=== PATIENT | male | born 2000 | race Caucasian/White ===

== ENCOUNTER 2022-08-14 09:47 | Emergency (ER) | payer OTHER, SELFPAY ==
--- NOTE | ~2022-08-14 | XR_ITS ---
XR ankle RT min 3V, XR foot RT min 3V 08/14/2022 10:09 Indication: Right foot and ankle pain after twisting injury. Procedure: 4 views right ankle pain for views right foot Comparison: No prior studies for comparison. Findings: There is a transverse nondisplaced fracture proximal aspect of the fifth metatarsal. Ankle mortise intact. There is uncinate chronic avulsion injury of the medial malleolus. Mild lateral soft tissue swelling. Talar dome is normal. Lisfranc joint intact. Impression: 1: Transverse nondisplaced fracture proximal aspect of the fifth metatarsal. Reviewed, dictated and finalized at location B. FEEDER Impression: 1: Transverse nondisplaced fracture proximal aspect of the fifth metatarsal. Impression: 1: Transverse nondisplaced fracture proximal aspect of the fifth metatarsal.
--- NOTE | 2022-08-14 09:52 | ED.LOWEXIN ---
HPI - Extremity Injury (Lower) General Chief Complaint: Extremity Injury, Lower Stated Complaint: rt ankle injury Source: patient and RN notes reviewed Mode of arrival: ambulatory Limitations: no limitations History of Present Illness HPI Narrative: 22-year-old male presents with concern for right foot and ankle pain. Reports on Sunday he rolled his ankle. He reports bruising, pain, swelling. Reports no pain at rest, pain with weight-bearing. MD complaint: ankle injury and foot injury Related Data Home Medications Medication Instructions Recorded Confirmed No Home Medications 08/14/22 08/14/22 Allergies Allergy/AdvReac Type Severity Reaction Status Date / Time No Known Allergies Allergy Verified 08/14/22 09:55 Review of Systems Review of Systems: CONSTITUTIONAL: Denies malaise, chills, sweats, or fever. SKIN: Denies rash or itching, open skin, laceration, abrasion, redness, warmth MUSCULOSKELETAL: Reports right ankle and foot pain, bruising, swelling NEUROLOGIC: Denies numbness, weakness All systems reviewed & are unremarkable except as noted in HPI and below PMFSH Comments At time of signature, agree with nursing past medical, surgical, social and family history. There is no relevant family history pertinent to the presenting complaint Exam Narrative: GENERAL: Well-appearing, well-nourished, and in no acute distress. HEAD: Normocephalic, atraumatic. EYES: PERRLA, conjunctivae clear NECK: Supple. CHEST: Speaks in full sentences. No respiratory distress. HEART: Regular rate and rhythm. Normal and equal peripheral pulses. EXTREMITIES: Right ankle, foot, digits have grossly normal strength and sensation, limited range of motion. Mild edema, dependent foot ecchymosis. 5/5 strength with digit flexion and extension. Normal sensation with sensitivity to light touch and pain. Dorsal lateral foot tenderness. No open wounds, no skin tenting, no devitalized tissue or atrophy, no trophic changes, no obvious deformity, alignment normal, nearby joints and structures intact. Distal pulses palpable and equal bilaterally, skin warm, dry, pink. Capillary refill less than 3 seconds. SKIN: Warm, dry, no rash. NEURO: Alert and oriented x3. PSYCH: Normal mood and affect Course Course Emergency Course: Patient is aware of diagnosis, understands and agrees to treatment plan. Anticipatory guidance given. Patient agrees to follow-up as directed and is aware of reasons to seek care at the emergency department. Portions of this record may have been created with voice recognition software Level of Care: Express Care Visit Vital Signs Vital signs: Reviewed. Procedures Orthopedic Splinting/Casting Injury #1: Splinting/Casting Date: 08/14/22 Splinting/Casting Time: 10:39 Side: right Lower Extremity Injury Location: foot Lower Extremity Immobilizer: post-op shoe and Juaquin wrap Other Orthopedic Equipment: crutches MDM - Extremity Injury (Lower) MDM Narrative Medical decision making narrative: Patients injury and pain is consistent with musculoskeletal etiology. No signs of neurological or vascular compromise on exam. Compartments and tissues are soft without signs of compartment syndrome. Pain is felt appropriate for further evaluation on an outpatient basis. Imaging Data My impression: Images reviewed, interpreted by radiologist, agree, see report. Radiologist's impression: XR ankle RT min 3V, XR foot RT min 3V 08/14/2022 10:09 Indication: Right foot and ankle pain after twisting injury. Procedure: 4 views right ankle pain for views right foot Comparison: No prior studies for comparison. Findings: There is a transverse nondisplaced fracture proximal aspect of the fifth metatarsal. Ankle mortise intact. There is uncinate chronic avulsion injury of the medial malleolus. Mild lateral soft tissue swelling. Talar dome is normal. Lisfranc joint intact. Impression: 1: Transverse non
[2022-08-14 09:59] VITALS: BP 130/82; PULSE 79; RESP 16; TEMP 36.6; O2SAT 100
== END 2022-08-14 10:29 | disposition home or self-care (01) ==
PROVIDERS: Emergency Provider Nurse Practitioner; PCP Internal Medicine
DX: S92.354A Nondisplaced fracture of fifth metatarsal bone, right foot, initial encounter for closed fracture (principal); X50.9XXA Other and unspecified overexertion or strenuous movements or postures, initial encounter
CPT/HCPCS: 73610; 73630; 99214; G0463

== ENCOUNTER 2024-02-27 11:44 | Emergency (ER) | payer OTHER, SELFPAY ==
--- NOTE | 2024-02-27 11:47 | ED.HA ---
HPI - Headache General Chief Complaint: Headache Stated Complaint: HEADACHE Time Seen by Provider: 02/27/24 11:46 Source: patient Mode of arrival: ambulatory Limitations: no limitations History of Present Illness HPI Narrative: Eliseo is a 24-year-old male patient presenting to the clinic today with complaints of more frequent migraine headache over the past month. He reports he has had 6 migraine headaches over the last 4 weeks. States he normally takes ibuprofen and his symptoms subside. States his starts out with visual loss in 1 eye and then he develops a headache on that side of his head and some extremity numbness. He normally takes Aleve and goes to sleep and wakes up without headache. Is concerned that his headaches or more frequent. He has had a CT scan of his head in the past and it was normal per patient. He denies any changes at this time. States he has a headache to the right side of his head rating it a 5/6 out of 10. Pain is a dull sharp pain. Took ibuprofen 600 mg 3 hours ago. Does have some associated nausea with photosensitivity. All other symptoms have resolved except for the headache at this time. Patient is concerned as he moved into a new home and thinks her may be mold in the home. Related Data Home Medications Medication Instructions Recorded Confirmed No Home Medications 02/27/24 02/27/24 Allergies Allergy/AdvReac Type Severity Reaction Status Date / Time No Known Allergies Allergy Verified 02/27/24 12:03 Review of Systems Review of Systems: Pertinent positives per HPI. Patient denies any fever, chills, rash, dizziness, cough, runny nose, sore throat, shortness of breath, chest pain, palpitations, vomiting, diarrhea, constipation, abdominal pain, or any urinary issues. [facility] Past Medical History Medical History Pyloric stenosis Vitamin D deficiency Family History Family History Mother Asthma Thyroid disease Grandparent Breast cancer Stomach cancer Social History Social History Smoking status: Never smoker Alcohol intake: never Substance use: never Substance use type: does not use Living arrangements: with friend(s) Occupation/Education: occupation Additional occupation/education comments: [employer] Comments At the time of my signature, I reviewed and agree with the nursing past medical, surgical, social, and family history. There is no relevant family history pertinent to the patient complaint. Exam Narrative: General: Well-developed, well nourished, in no apparent distress Head: Normocephalic, atraumatic Eyes: Pupils equally round and reactive to light bilaterally, EOM intact, sclera and conjunctive clear, no discharge, lids normal Ears: TMs intact and clear, ear canals clear, no drainage, grossly hearing normal. Nose: Nares patent, no discharge, no inflammation, no sinus tenderness. Mouth: Oropharynx without lesions or masses, good dentition, MMM. Tongue midline, even rise and fall of uvula Neck: Supple, trachea midline, no enlargement of anterior or posterior cervical nodes, no thyroid masses or goiter palpable. Cardio: Regular rate and rhythm, s1 and s2 normal, no murmur appreciated. Resp: Clear to auscultation bilaterally anteriorly and posteriorly, no rhonchi, rales, wheezing or rubs Musculoskeletal: No deformity, non-tender to palpation, grossly normal range of motion, muscle strength strong and equal, peripheral pulse strong, no edema, no cyanosis, normal gait and station Neuro: Alert and oriented x4 with normal speech, no focal deficits, cranial nerves I through XII intact, muscle strength 5 out of 5, sensation intact bilaterally, negative Romberg test Course Course Emergency Course: Portions of this record may have been created with voice burt
[2024-02-27 11:52] VITALS: BP 138/93; PULSE 74; RESP 16; TEMP 36.6; O2SAT 99
[2024-02-27] MEDS: ACETAMINOPHEN 500 MG TABLET PO (12:06)
[2024-02-27] MEDS: ONDANSETRON HCL ODT 4 MG TABLET SUBLINGUAL (12:08)
[2024-02-27] MEDS: diphenhydrAMINE HCl CAP 25 MG CAPSULE 50 MG PO (12:09)
== END 2024-02-27 12:30 | disposition home or self-care (01) ==
PROVIDERS: Emergency Provider Nurse Practitioner Family
DX: G43.909 Migraine, unspecified, not intractable, without status migrainosus (principal)
CPT/HCPCS: 99213; A9270; G0463

== ENCOUNTER 2024-03-04 14:04 | Outpatient (CLI) | payer OTHER, SELFPAY ==
--- NOTE | ~2024-03-04 | MR_ITS ---
EXAMINATION: MR brain/brain stem wo con DATE: 03/04/2024 14:42 INDICATION: Migraine headache. TECHNIQUE: Magnetic resonance imaging (MRI) of the brain and brainstem was performed without intraven ous contrast. COMPARISON: None. FINDINGS: There is no intracranial hemorrhage, acute infarction, or abnormal intracranial mass lesion . The ventricles are normal in size. There is mild mucosal thickening in the paranasal sinuses. The o rbits are normal. The mastoid air cells are normal. IMPRESSION: 1. Normal brain. Reviewed, dictated and finalized at location A. IMPRESSION: 1. Normal brain.
== END 2024-03-04 14:05 | disposition home or self-care (01) ==
LOC: GOSHIMG 14:05
PROVIDERS: PCP Nurse Practitioner Family; Visit Provider Nurse Practitioner Family
DX: G43.909 Migraine, unspecified, not intractable, without status migrainosus (principal)
CPT/HCPCS: 70551